=== PATIENT | female | born 1990 | race African-American/Black ===

== ENCOUNTER 2018-04-13 11:18 | Emergency (ER) | payer OTHER, MEDICAID ==
[~2018-04-13] VITALS: Ht 165.1 cm; Wt 60.0 kg
[2018-04-13 11:22] VITALS: BP 120/67
== END 2018-04-13 18:30 | disposition left against medical advice (07) ==
LOC: ER 11:18
DX: R11.2 Nausea with vomiting, unspecified (principal); Z53.21 Procedure and treatment not carried out due to patient leaving prior to being seen by health care provider

== ENCOUNTER 2022-09-23 05:50 | Inpatient (IN) | payer OTHER, MEDICAID ==
[~2022-09-23] VITALS: Ht 157.5 cm; Wt 69.9 kg
[2022-09-23] MEDS ORDERED: RHO(D) IMMUNE GLOBULIN 300 MCG/SYR IM NR (07:00)
[2022-09-23] MEDS ORDERED: MISOPROSTOL 100MCG TABLET VG NR (07:00)
[2022-09-23] MEDS ORDERED: LACTATED RINGERS 1,000 ML IV ONE (07:00)
[2022-09-23] MEDS ORDERED: NALOXONE HCL 0.4 MG/ML 1ML VIAL IM PRN (07:00)
[2022-09-23] MEDS ORDERED: LIDOCAINE HCL 1% 20ML VIAL (Pyxis) INJ INFIL SCH (07:00)
[2022-09-23] MEDS ORDERED: OXYTOCIN 30 UNITS/500ML NS PMX 500 ML IV SCH (07:00)
[2022-09-23] MEDS ORDERED: METHYLERGONOVINE MALEATE 0.2 MG/ML IM PRN ×2 (07:00→16:00)
[2022-09-23] MEDS ORDERED: OXYTOCIN 30 UNITS/500ML NS PMX 500 ML IV ONE (07:30)
[2022-09-23 07:50] LABS: BASOPHILS % 0.7 % (0.0-2.0); EOSINOPHILS % 3.3 % (0.0-5.0); HEMATOCRIT. 33.2 % (36.0-48.0); HEMOGLOBIN. 11.2 g/dL (12.0-16.0); LYMPHOCYTES % 17.9 % (20.0-50.0); MEAN PLATELET VOLUME 10.5 fl (7.4-10.4); MONOCYTES % 7.3 % (2.0-8.0); NEUTROPHILS % 70.8 % (40.0-76.0); PLATELET 194 x1000/uL (130-400); RED BLOOD CELL COUNT 3.86 mill/uL (4.2-5.4); RED CELL DISTRIBUTION WIDTH 14.1 % (11.6-14.6)
[2022-09-23 08:14] LABS: CLARITY URINE CLEAR (CLEAR); COLOR URINE YELLOW (YELLOW); KETONES URINE NEGATIVE (NEGATIVE); LEUKOCYTE ESTERASE URINE 1+ (NEGATIVE); NITRITE URINE NEGATIVE (NEGATIVE); OCCULT BLOOD URINE 2+ (NEGATIVE); PROTEIN URINE NEGATIVE (NEGATIVE); SPECIFIC GRAVITY URINE 1.009 (1.005-1.030); UROBILINOGEN URINE 0.2 E.U./dL (0.2-1.0)
[2022-09-23] MEDS ORDERED: LACTATED RINGERS 1,000 ML IV SCH (08:45)
[2022-09-23 08:49] LABS: *AMPHETAMINES SCREEN URINE NEGATIVE (NEGATIVE); *BARBITURATES SCREEN URINE NEGATIVE (NEGATIVE); *BENZODIAZEPINES SCREEN URINE NEGATIVE (NEGATIVE); *COCAINE SCREEN URINE NEGATIVE (NEGATIVE); METHADONE URINE SCREEN NEGATIVE (NEGATIVE); OPIATES URINE SCREEN NEGATIVE (NEGATIVE); PHENCYCLIDINE URINE SCREEN NEGATIVE (NEGATIVE)
[2022-09-23 08:54] LABS: CANNABINOID URINE SCREEN PRESUMTIVE POSITIVE (NEGATIVE)
[2022-09-23] MEDS ORDERED: NON FORMULARY PATIENT HOME MED XX SCH (12:45)
[2022-09-23 12:47] LABS: HEPATITIS B SURFACE ANTIGEN NEGATIVE
[2022-09-23] MEDS ORDERED: BUTORPHANOL TARTRATE 1 MG/ML VIAL IV PRN (13:00)
[2022-09-23] MEDS ORDERED: ACETAMINOPHEN 500MG TABLET PO PRN (16:00)
[2022-09-23] MEDS ORDERED: BENZOCAINE/LANOLIN/ALOE VERA SPRAY TOP PRN (16:00)
[2022-09-23 17:00] VITALS: BP 115/54
[2022-09-23] MEDS: SIMETHICONE 80MG TABLET CHEW PO SCH ×3 (17:00→22:37)
[2022-09-23 17:30] VITALS: BP 110/55
[2022-09-23 18:00] VITALS: BP 108/63
[2022-09-23] MEDS: IBUPROFEN 400MG TABLET PO PRN (18:25)
[2022-09-23 19:30] VITALS: BP 103/65
[2022-09-23 20:53] LABS: BASOPHILS % 0.2 % (0.0-2.0); EOSINOPHILS % 0.1 % (0.0-5.0); HEMATOCRIT. 32.1 % (36.0-48.0); HEMOGLOBIN. 10.6 g/dL (12.0-16.0); LYMPHOCYTES % 8.4 % (20.0-50.0); MEAN CORPUSCULAR HEMOGLOBIN 28.2 pg (28.0-32.0); MEAN CORPUSCULAR VOLUME 85.6 fL (81.0-99.0); MEAN PLATELET VOLUME 9.8 fl (7.4-10.4); NEUTROPHILS % 86.3 % (40.0-76.0); PLATELET 206 x1000/uL (130-400); RED BLOOD CELL COUNT 3.75 mill/uL (4.2-5.4); RED CELL DISTRIBUTION WIDTH 13.9 % (11.6-14.6)
[2022-09-24 04:00] VITALS: BP 107/64
[2022-09-24] MEDS: IBUPROFEN 400MG TABLET PO PRN ×3 (04:10→17:09)
[2022-09-24 06:17] LABS: BASOPHILS % 0.1 % (0.0-2.0); EOSINOPHILS % 1.1 % (0.0-5.0); HEMATOCRIT. 28.3 % (36.0-48.0); HEMOGLOBIN. 9.5 g/dL (12.0-16.0); LYMPHOCYTES % 16.1 % (20.0-50.0); MEAN CORPUSCULAR HEMOGLOBIN 28.6 pg (28.0-32.0); MEAN CORPUSCULAR VOLUME 85.3 fL (81.0-99.0); MEAN PLATELET VOLUME 9.5 fl (7.4-10.4); MONOCYTES % 6.7 % (2.0-8.0); PLATELET 180 x1000/uL (130-400); RED BLOOD CELL COUNT 3.32 mill/uL (4.2-5.4); RED CELL DISTRIBUTION WIDTH 14.2 % (11.6-14.6)
[2022-09-24 07:30] VITALS: BP 119/70
[2022-09-24] MEDS ORDERED: PRENATAL VIT/FE FUMARATE/FA TABLET PO SCH (09:00)
[2022-09-24] MEDS: SIMETHICONE 80MG TABLET CHEW PO SCH ×3 (09:19→17:09)
[2022-09-24 16:30] VITALS: BP 102/69
[2022-09-24 19:30] VITALS: BP 106/58
== END 2022-09-24 20:00 | disposition home or self-care (01) | DRG 807 ==
LOC: 8 EST LDRP 05:50 → OBSVTOIN 05:50 → 8EST 17:25
PROVIDERS: ADMIT Obstetrics & Gynecology; ATTEND Obstetrics & Gynecology
PROC: 10E0XZZ Delivery of Products of Conception, External Approach (ICD-10-PCS; principal; 2022-09-24)
DX: O80 Encounter for full-term uncomplicated delivery (principal); Z37.0 Single live birth; Z3A.38 38 weeks gestation of pregnancy
CPT/HCPCS: 36415; 76805; 76818; 80305; 80349; 81003; 85025; 86592; 86703; 86762; 86850; 86900; 87340; 99281; J0595; J2310; J3490; J7120; J2590